=== PATIENT | female | born 2000 | race Caucasian/White ===

== ENCOUNTER 2025-03-27 13:52 | Outpatient (AMB) | payer MEDICAID, SELFPAY ==
[2025-03-27 14:12] VITALS: BP 126/83; PULSE 83; RESP 16; TEMP 36.8; O2SAT 99; BMI 27.8
--- NOTE | 2025-03-27 14:12 | AMB.OBINITIA ---
Vital Signs 03/27/25 14:12 Height 1.57 m Height Method Stated Weight 68.946 kg Weight Measurement Method Standing Scale BMI 27.8 BP 126/83 Blood Pressure Source Automatic Cuff Blood Pressure Location Left Upper Arm Position Sitting Respiration 16 Pulse 83 Pulse Source Monitor Temp 98.2 F Temp Source Oral Pulse Oximetry (%) 99 Oxygen Delivery Method Room Air Allergies/Home Meds Allergies & Medications Allergies No Known Allergies Allergy (Verified 03/27/25 14:13) Medication Reconciliation vitamins-iron fumarate 66 mg iron-folic acid 1 mg tablet tab PO 03/27/25 [History Confirmed 03/27/25] Intake Visit Data Collection New Patient or Established: New Patient (never been to [facility]) Reason for Visit:: TRANSFER INITIAL CARE Seen by Clinical Staff ONLY (RN/MA): No Edge Burnisher Uppers Required: No Do You Feel Safe at Home: Yes Authorities Contacted: N/A PCP or OBGYN visit in last 3 months: Yes Hx Now: Yes Are you currently on any form of Control: No Last menstrual period: 01/06/25 Pain Present Currently: No Pain Scale Used: Dixon-Quintanilla/Numerical Pain scale:: 0 Smoking Status Smoking Status: Never smoker Immunizations Flu Vaccine in the Last 12 Months: Yes Flu Vaccine Exclusion Criteria: Already Received Questionnaires Covid-19 Vaccine Questionnaire Has patient been vacinated for Covid-19 Have you been vacinated for Covid-19: Yes PHQ-9 PHQ-2 Over the last 2 weeks, how often have you been bothered by any of the following problems? 1. Little interest or pleasure in doing things: not at all 2. Feeling down, depressed, or hopeless: not at all Total score: 0 PHQ-9 3. Trouble falling or staying asleep, or sleeping too much: Not at all 4. Feeling tired or having little energy: Not at all 5. Poor appetite or overeating: Not at all 6. Feeling bad about yourself - or that you are a failure or have let yourself or your family down: Not at all 7. Trouble concentrating on things, such as reading the newspaper or watching television: Not at all 8. Moving or speaking so slowly that other people could have noticed? - Or the opposite - being so fidgety or restless that you have been moving around a lot more than usual: not at all 9. Thoughts that you would be better off or of hurting yourself in some way: Not at all Total score: 0 Source: Developed by Drs. Shay Escalante, Lyndsay Light, Jarad Ambrose and colleagues, with an educational fortunato from [employer]. Depression screen completed yes Social History Living Situation History Marital Status: Life Partner Lives With: Family Housing: House Tobacco History Smoking Status: Never smoker Second Hand Smoke Exposure: No Alcohol History Alcohol Intake: Never Domestic Abuse History Do You Feel Safe at Home: Yes History of Present Illness HPI Narrative 25-year-old 1 para 0 for OBI. Patient is a transfer from [facility]. She had 1 visit there. She came with minimal records. Last. January 06, 2025. Estimated due date 06/14/2025. Patient 11 weeks 4 days by LMP. Denies social habits. Denies surgery. Denies chronic illness. No bleeding today slight nausea and vomiting she reports that she did have some spotting pink a week ago OB Initial Visit OB Flowsheet OB Flowsheet Initial Weight: Not Recorded Date <del>?</del> EGA Weight BP Alb Glu CTX Pres Fundal ht FHR Mov Dilation Station Effacement Hx Notes Visit Note 03/27/25 <del>?</del> 11w 3d 68.946 kg 126/83 absent unknown 8 absent 25-year-old 1 para 0 at 11 weeks 4 days by LMP. Her LMP January 06, 2025. Estimated due date 06/14/2025. She had some spotting pink a week ago. Some nausea today but no bleeding Patient scheduled stat to [facility] for an ultrasound. No FHTs at 11 weeks and history of bleeding a week ago. Did a OB panel with hCG x 2 today. And then patient will return after hCGs and sono for rule out viability Menstrual History Menstrual reliability: definite Flow: normal Menstrual regularity: regular Monthly: Yes Age at menarche: 14 On control pills at conception: No Associated symptoms (LMP): Reports nausea, vomiting, fatigue and breast tenderness OB History : 1 Infection History & Risk Evaluation History of STDs: none Genetic Screening & History Genetic Screening/Teratology Counseling - Includes patient, baby's father, or anyone in either family with: 1. Patient's age 35 years or older as of estimated date of delivery: No 2. Thalassemia (Setswana, Mongolian, Mediterranean, or Background); MCV less than 80: No 3. Neural Tube Defect (Meningomyelocele, Spina Bifida, or Anencephaly): No 4. Congenital Heart Defect: No 5. Down Syndrome: No 6. Otf-Sachs (Ashkenazi Gnosticism, Cajun, Divehi Coamo): No 7. Inessa Disease (Ashkenazi Gnosticism): No 8. Familial Dysautonomia (Ashkenazi Gnosticism): No 9. Sickle Cell Disease or Trait (): No 10. Hemophilia or other blood disorders: No 11. Muscular Dystrophy: No 12. Cystic Fibrosis: No 13. Augusta's Chorea: No 14. Mental Retardation/Autism: No 15. Other inherited genetic or chromosomal disorder: No 16. Maternal Metabolic Disorder (EG,TYPE 1 Diabetes, PKU): No 17. Patient or baby's father had a child with defects not listed above: No 18. Recurrent loss or a stillbirth: No 19. Medications (including supplements, vitamins, herbs or otc drugs)/illicit/recreational drugs/alcohol since last menstrual period: No 20. Any other: No Infection History 1. Live with someone with TB or exposed to TB: No 2. Rash or viral illness since last menstrual period: No 3. Hepatitis B,C: No Other (see comments) Source: [employer] Review of Systems Review of Systems Systems Reviewed: All systems reviewed, normal except as documented Constitutional Constitutional: Reports fatigue Gastrointestinal Gastrointestinal: Reports nausea and Reports vomiting Endocrine Endocrine: Reports fatigue Exam General Limitations: no limitations General Appearance: alert, in no apparent distress, comfortable, cooperative, healthy appearing, well developed and well groomed Head Head exam: atraumatic, normocephalic and normal inspection ENT ENT exam: Present normal exam, normal oropharynx and mucous membranes moist Neck Neck exam: Present normal inspection, full ROM and trachea midline Chest Chest inspection: Present normal inspection and symmetric chest wall rise Resp Respiratory exam: Present normal lung sounds bilaterally Card Cardiovascular exam: Present regular rate, normal rhythm and normal heart sounds Abdominal Abdominal exam: Present soft and normal bowel sounds Psych Psychiatric exam: Present normal affect and normal mood Office Procedures O[facility] Clinic LOC & Office Proc's Nursing/Assessment Patient Status: Initial/New Patient OB Clinic Nursing Assessment: Medication Reconciliation, Update PMH in EMR and Vital Signs OB Clinic Coordination of Care: Complex Care and Chronic Disease 1-5, Consent,records obtained, informed consent, Education Simp Pt/Fam, 1 Ins Authorization, Lab and Imaging orders, Results/Orders obtained and Staff clarify orders Special Needs: Heart tones New Patient Charge New Patient Point Assignment: [id number] New Patient Point Charge: MANAGER RESPIRATORY CARE Level 4 ([id number]) Assessment & Plan Diagnosis / Problem List (1) Encounter for supervision of high risk in first trimester, antepartum: Status: Acute Plan Sono at [facility] to evaluate for viability. OB panel today with hCG x 2. Discussed SAB precautions and ER precautions rest increase fluids continue prenatals return in 2 weeks for follow-up Additional Plan Follow Up: 2 Weeks (obc)
== END 2025-03-27 14:41 | disposition home or self-care (01) ==
LOC: HODSOBC 13:52
PROVIDERS: Supervising Provider Advanced Practice Midwife; Visit Provider Advanced Practice Midwife
DX: O09.91 Supervision of high risk pregnancy, unspecified, first trimester (principal); Z3A.11 11 weeks gestation of pregnancy
CPT/HCPCS: 99204; G0463

== ENCOUNTER 2025-03-28 08:29 | Emergency (ER) | payer MEDICAID, SELFPAY ==
--- NOTE | 2025-03-28 08:44 | PD.EDVAGBL ---
ED OB Contraction Preg RMI/HPI General Chief complaint: Vaginal Bleeding Stated complaint: VAGINAL BLEEDING, 10 WEEKS Time Seen by Provider: 03/28/25 08:36 Arrival date/time: 03/28/25 08:29 RME / HPI RME / HPI Narrative: 25-year-old female who has never been before presents to the ER complaining of vaginal spotting which began today along with mild cramping, patient is aware that she is as she had a test in the office which confirmed her however she has not had an ultrasound yet, LMP was in December and she believes she is about 10 weeks . Related Data Home Medications ?Medication ?Instructions ?Recorded ?Confirmed vitamins-iron fumarate 66 tab PO 03/27/25 03/27/25 mg iron-folic acid 1 mg tablet Allergies Allergy/AdvReac Type Severity Reaction Status Date / Time No Known Allergies Allergy Verified 03/28/25 08:30 ED Exam Narrative Physical exam: Constitutional: Patient alert and oriented. Well appearing. No acute distress. Not toxic appearing. Head: Normocephalic, atraumatic. Eyes: Periorbital regions bilaterally normal to inspection. Conjunctiva clear bilaterally. Sclera anicteric bilaterally. Pupils equal, round, reactive to light bilaterally. Extraocular movements intact bilaterally. Mouth/Throat: Mucous membranes moist. No stridor or muffled voice. No trismus. Handling secretions without difficulty. Airway widely patent. Neck: Supple. Trachea midline. No JVD. No nuchal rigidity. Normal range of motion. Respiratory: Normal effort. No accessory muscle use or respiratory distress. Lungs clear to auscultation bilaterally without rhonchi, wheezes, or crackles. Cardiovascular: RRR. Normal S1/S2. No murmurs or rubs. Radial pulses intact bilaterally. Abdomen: Soft. Non-distended. Non-tender throughout. No pulsatile mass. No guarding or rebound. Negative Coats?s sign. Negative McBurney?s point tenderness. Negative Rovsing?s. Back: No midline tenderness or step-offs. No CVA tenderness to palpation bilaterally. Upper Extremities: No gross deformities. Lower Extremities: No gross deformities. No edema or calf tenderness. Neuro: Speech normal. No gross motor or sensory deficits to upper or lower extremities bilaterally. GCS 15. CN II?XII grossly intact. Skin: Warm, dry, normal color. Psych: Normal affect. Cooperative. Normal insight. : Deferred Course Course Course Narrative: At the time of reassessment prior to discharge, the patient remains alert and oriented ?3 with GCS 15. Vitals are normal, pain is controlled, and the patient is tolerating oral intake without nausea or vomiting. The patient is agreeable to discharge and verbalizes understanding of the diagnosis, studies, treatment plan, medications (including side effects/precautions), and strict ER return precautions as discussed in the ED. All concerns were addressed, and the patient is comfortable with the plan. Patient remains hemodynamically stable and serial abdominal exams benign without peritonitis Quality Measures none Orders Category Date Time Status NPO NOW Care 03/28/25 08:48 Active Diet NPO (NOW) Diet 03/28/25 08:48 Active US OB <= 14 weeks fetus Stat Exams 03/28/25 08:48 Completed US OB transvaginal Stat Exams 03/28/25 08:48 Completed ABO/RH Type Stat Lab 03/28/25 09:49 Completed Beta HCG,Quantitative Stat Lab 03/28/25 09:49 Completed CBC Stat Lab 03/28/25 09:49 Completed CMP [Comprehensive Metabolic Panel] Stat Lab 03/28/25 09:49 Completed Lipase Stat Lab 03/28/25 09:49 Completed UA, C/S IF [Urinalysis, C/S if Indicated] Stat Lab 03/28/25 09:03 Completed Acetaminophen Tab [Tylenol Tab] Med 03/28/25 08:48 Discontinued 650 mg PO X1 ONE Vital Signs Vital signs: Vital Signs Temperature 97.8 F 03/28/25 08:46 Pulse Rate 98 03/28/25 08:46 Respiratory Rate 19 03/28/25 08:46 Blood Pressure 158/83 H 03/28/25 08:46 Pulse Oximetry (%) 99 03/28/25 08:46 Oxygen Delivery Method Room Air 03/28/25 08:46 Vaginal Bleeding MDM Narrative MDM Narrative: MDM: This patient is in the first trimester of her and after a careful history, physical exam, and evaluation, is found to be at risk of a miscarriage. The likelihood of an ectopic is extremely low. There are no signs of an infection at this time. I am concerned for mild anemia with Hb 11.8 as well as a likely spontaneous or missed miscarriage otherwise no severe metabolic or electrolyte abn. Urine is contaminated. Pt is O positive no indication for rhogam. Ultrasound with no FHT and fetus is measuring 8 weeks despite a gestational sac of about 10 weeks. The patient is instructed to follow-up with an Garbage Collector within 48-72 hours for re-evaluation. The patient is warned to return to the ED if she develops significant bleeding, dizziness, syncope, or severe pain. Patient data External records reviewed:: [facility] previous records Clinical information provided by:: patient Social determinants that could affect healthcare access:: none Patient has the following chronic illnesses:: As noted How is presenting disease/condition affected by chronic disease/condition?: no chronic disease Evaluation data The following diagnostics were reviewed and interpreted by me:: lab results and radiology exam(s) Lab and/or radiology exams considered but not ordered:: Additional Labs and radiology considered, but not ordered as they were not clinically indicated at this time. Interpretation Summary: Lab work notable for hemoglobin minimally low at 11.8, hematocrit minimally low at 34.6, neutrophil percentage minimally elevated 81% however white blood cell count is normal at 9.6 neutrophil number minimally elevated 7.8 immature granulocyte number minimally elevated 0.03 remainder of CBC, CMP, lipase within normal limits, hCG is 3055 there is blood noted in the urine with 9 RBCs and 6 WBCs and 4 squamous cells with rare bacteria cannot exclude asymptomatic bacteruria to her urea in Type and screen notes O+ no indication for RhoGAM Medications / Prescriptions Medications or Prescriptions considered but not ordered:: I ordered medications based on the patient?s clinical needs and assessment, as documented in the chart. For medications not prescribed, they were not indicated for the patient's current condition, and I determined they were unnecessary at this time to avoid potential risks or complications. Medication administrations:: Medication Administration History Discontinued Medications Acetaminophen (Acetaminophen 325 Mg Tablet) 650 mg PO X1 ONE Stop: 03/28/25 08:49 Last Admin: 03/28/25 09:45 Dose: Not Given Documented By: ÓSCAR Non-Admin Reason: Patient Refused As noted Consultations Consultation(s) initiated? (list below): Yes Consultation #1 (Physician, Specialty, Details): Dr. Massey, OPERATIONS INTERN, after review of images she states that this is consistent with a spontaneous and she can follow-up with her clinic on Tuesday. Time: 13:31 Diagnosis Vaginal Bleeding Differential Diagnosis: missed , threatened and incomplete Most likely diagnosis given after review of the tests above:: Missed AB Admission Indicated Admission indicated?: not indicated Admission Request Was there a request for admission?: No Disposition Plan Disposition Plan: Discharge Discharge Attestation Discharge Attestation: The patient and all family members were given an opportunity to ask questions and understood the discharge instructions. Discharge instructions specifically effects, indications for sooner follow up or return to the emergency department, and the expected course of current diagnosis. Patient condition: Stable Discharge Plan Plan Patient Disposition: HOME (Self Care) Patient condition on transfer: Stable Prescriptions/Referrals Prescriptions/Med Rec: No Action vit-iron fum-folic ac 66 mg iron- 1 mg tablet PO Referrals: [facility] (OB Clinic)Arianna MD [Physician, OPERATIONS INTERN] - 04/01/25 Clinical Impression: Missed Antonio Hameed MD [Primary Care Provider, Family Practice] - In 1 week Problem List Clinical Impression: Missed Patient/Caregiver Discharge Instructions Education Materials: ED Missed Miscarriage Additional Instructions: Follow up with your OPERATIONS INTERN doctor within 72 hours. Return to the Emergency Room immediately for any new, worsening, continuing symptoms or any concerns at all. Return to the Emergency Room within 72 hours if you are unable to follow up with your OPERATIONS INTERN doctor within 48 hours. Print Language: Italian Stand Alone Forms: Vanesa Award Info., Patient Portal Info Letter ELIE/ZACHERY Supervising Physician ELIE/ZACHERY Supervising Physician: Dr. Morin
[2025-03-28 08:46] VITALS: BP 158/83; PULSE 98; RESP 19; TEMP 36.6; O2SAT 99
[2025-03-28 08:47] VITALS: BMI 32.8
--- NOTE | 2025-03-28 08:48 | XR_ITS ---
Examination: OB Transvaginal ultrasound of the pelvis, complete Technique: Transvaginal sonographic images pelvis performed using cosme scale imaging Exam date and time: 03/28/2025 at 9:25 a.m CLINICAL INDICATION: No heart rate able to be identified on transabdominal obstetrical ultrasound exam FINDINGS: There is excellent visualization of the uterus, gestational sac and fetus. The size of the gestational sac is consistent with gestational age of 9 weeks 4 days. Metter-rump length of the fetus is consistent with 8 weeks 5 days chorioamniotic separation is identified, this is a normal finding. There is no motion identified, there is no cardiac activity identified There was good visualization of both right and left ovaries, they are both normal size and configuration, and there are small normal follicular cysts seen in both ovaries. No yolk sac is visible. IMPRESSION: 1. The findings noted and discussed above indicate the presence of definite intrauterine demise. 2. No other abnormalities are seen..
--- NOTE | 2025-03-28 08:48 | XR_ITS ---
Examination: Complete OB ultrasound, less than 14 weeks, transabdominal Date and time of exam: 03/28/2025 at 9:00 a.m. Technique: Obstetrical ultrasound images less than 14 weeks performed via transabdominal imaging Findings: A normal shaped single intrauterine gestation is present in the uterus. The size of the gestational sac is consistent with a gestational age of 10 weeks 0 days there is a small fetus seen within the gestational sac. No yolk sac is visible. No cardiac activity was seen. The crown-rump length of the fetus measures 1.8 cm consistent with an 8-week 2-day gestational age. Both right and left ovaries have a normal size and normal ultrasonic appearance. There is normal color flow vascularity extending to both ovaries Impression 1. There is a single intrauterine fetus identified, crown-rump length consistent with 8 weeks 2 days gestation. However the size of the gestational sac is consistent with a 10-week IUP. No yolk sac is visible either. 2. No heart tones can be seen at all despite prolonged effort to visualize these. 3. These findings are quite worrisome for intrauterine demise.
[2025-03-28 09:09] LABS: Collection Type, Urine Clean Catch
[2025-03-28 09:13] LABS: Bacteria,Urine Rare; Bilirubin,Urine Negative (Negative); Blood,Urine 2+ (Negative); Clarity,Urine Clear (Clear/Hazy); Color,Urine Lt-Yellow (Lt Yel-Yel); Culture Indicated,Urine Not Indicated; Glucose, Urine Negative (Negative); Ketones,Urine Negative (Negative); Leukocyte Esterase,Urine Positive (Negative); Nitrite,Urine Negative (Negative); PH,Urine 6.5 (5.0-7.0); Protein,Urine Negative (Neg - Trace); RBC,Urine 9 /hpf (0-3); Specific Gravity,Urine 1.007 (1.001-1.035); Squamous Epithelial Cell,Urine 4 /hpf (0-5); Urobilinogen,Urine Negative mg/dL (0.0-1.0); WBC,Urine 6 /hpf (0-5)
[2025-03-28 10:13] LABS: Basophils # (Auto) 0.0 Thou/mm3 (0.0-0.2); Basophils % (Auto) 0 % (0-2.5); Eosinophils # (Auto) 0.1 Thou/mm3 (0.0-0.5); Eosinophils % (Auto) 2 % (0-10); Hematocrit 34.6 % (36.0-46.0); Hemoglobin 11.8 g/dL (12.0-16.0); Immature Granulocytes Auto 0.03 Thou/mm3 (0.00-0.00); Lymphocytes # (Auto) 1.2 Thou/mm3 (1.0-4.8); Lymphocytes % (Auto) 13 % (10-50); Mean Corpuscular HGB Conc 34.1 g/dl (31.0-37.0); Mean Corpuscular Hemoglobin 27.4 pg (25.0-35.0); Mean Corpuscular Volume 80 fL (80-100); Monocytes # (Auto) 0.5 Thou/mm3 (0.0-0.8); Monocytes % (Auto) 5 % (0-12); Neutrophils # (Auto) 7.8 Thou/mm3 (1.8-7.7); Neutrophils % (Auto) 81 % (37-80); Nucleated Red Blood Cell # 0.00 Thou/mm3 (0.00-0.00); Nucleated Red Blood Cell % 0 /100 WBC (0); Platelet Count 158 Thou/mm3 (140-440); RDW Standard Deviation 38.3 fL (36.4-46.3); Red Blood Count 4.31 Miln/mm3 (4.00-5.20); White Blood Count 9.6 Thou/mm3 (3.6-11.0)
[2025-03-28 10:32] LABS: Alanine Aminotransferase 17 U/L (10-49); Albumin, Serum 4.9 gm/dL (3.5-5.0); Albumin/Globulin Ratio 1.9 (1.2-2.2); Alkaline Phosphatase 73 U/L (46-116); Anion Gap 12 (7-16); Aspartate Amino Transferase 18 U/L (0-34); BUN/Creatinine Ratio 8 Ratio (12-20); Bilirubin,Total 0.3 mg/dL (0.3-1.2); Blood Urea Nitrogen 5 mg/dL (9-23); Calcium 9.8 mg/dL (8.3-10.6); Calcium (Corrected) 9.8 mg/dL (8.5-10.1); Carbon Dioxide 25.7 mMol/L (20.0-31.0); Chloride 104 mMol/L (98-107); Creatinine (Component) 0.6 mg/dL (0.6-1.3); Estimated Creatinine Clearance 149.6 mL/min (>60); Globulin 2.6 gm/dL (2.3-3.5); Glucose 103 mg/dL (74-106); Lipase 25 U/L (12-53); Osmolality,Calculated 280 (275-295); Potassium 3.8 mMol/L (3.4-5.1); Sodium 142 mMol/L (136-145); Total Protein 7.5 gm/dL (5.7-8.2); eGFR > 60 See Note
[2025-03-28 10:38] LABS: Beta HCG,Quantitative 3055 mIU/mL (<5.0)
== END 2025-03-28 15:19 | disposition home or self-care (01) ==
PROVIDERS: Emergency Provider Physician Assistant; PCP Family Medicine
DX: O02.1 Missed abortion (principal); Z3A.10 10 weeks gestation of pregnancy
CPT/HCPCS: 36415; 76801; 76817; 80053; 81001; 83690; 84702; 85025; 86900; 86901; 99283

== ENCOUNTER 2025-03-28 15:25 | Outpatient (AMB) | payer MEDICAID, SELFPAY ==
[2025-03-28 15:45] VITALS: BP 131/83; PULSE 105; RESP 18; TEMP 36.8; O2SAT 98; BMI 26.8
--- NOTE | 2025-03-28 15:45 | AMB.GYNCLNOT ---
Vital Signs 03/28/25 15:45 Height 1.6 m Height Method Stated Weight 68.606 kg Weight Measurement Method Standing Scale BMI 26.8 BP 131/83 H Blood Pressure Source Automatic Cuff Blood Pressure Location Left Upper Arm Position Sitting Respiration 18 Pulse 105 H Pulse Source Monitor Temp 98.2 F Temp Source Oral Pulse Oximetry (%) 98 Oxygen Delivery Method Room Air Allergies/Home Meds Allergies & Medications Allergies No Known Allergies Allergy (Verified 03/28/25 15:46) Medication Reconciliation vitamins-iron fumarate 66 mg iron-folic acid 1 mg tablet tab PO 03/27/25 [History Confirmed 03/28/25] Intake Visit Data Collection New Patient or Established: Established Patient (seen at [facility] within 3 years) Reason for Visit:: ER Seen by Clinical Staff ONLY (RN/MA): No Service Delivery Analyst Required: Yes Service Delivery Analyst's name/title: STEPHANIE FLORES MA Do You Feel Safe at Home: Yes Authorities Contacted: N/A PCP or OBGYN visit in last 3 months: Yes Date of Last PCP or OBGYN visit: 03/28/25 Hx Now: Yes Are you currently on any form of Control: No Pain Present Currently: No Pain Scale Used: Dixon-Quintanilla/Numerical Pain scale:: 0 Smoking Status Smoking Status: Never smoker Immunizations Flu Vaccine in the Last 12 Months: No Flu Vaccine Exclusion Criteria: No Exclusion Criteria 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 1. Little interest or pleasure in doing things: not at all 2. Feeling down, depressed, or hopeless: not at all Total score: 0 PHQ-9 3. Trouble falling or staying asleep, or sleeping too much: Not at all 4. Feeling tired or having little energy: Not at all 5. Poor appetite or overeating: Not at all 6. Feeling bad about yourself - or that you are a failure or have let yourself or your family down: Not at all 7. Trouble concentrating on things, such as reading the newspaper or watching television: Not at all 8. Moving or speaking so slowly that other people could have noticed? - Or the opposite - being so fidgety or restless that you have been moving around a lot more than usual: not at all 9. Thoughts that you would be better off or of hurting yourself in some way: Not at all Total score: 0 If you checked off any problems, how difficult have these problems made it for you to do your work, take care of things at home, or get along with other people?: not difficult at all Source: Developed by Drs. Shay Escalante, Lyndsay Light, Jarad Ambrose and colleagues, with an educational fortunato from [employer]. Depression screen completed yes Social History Living Situation History Lives With: Family Housing: House Tobacco History Smoking Status: Never smoker Second Hand Smoke Exposure: No Alcohol History Alcohol Intake: Never Domestic Abuse History Do You Feel Safe at Home: Yes History of Present Illness HPI Narrative Polina Dennis presents to the emergency room today with concerns related to her . She reports experiencing a small amount of bleeding. The patient speaks limited Albanian and required some assistance with communication during the visit. She was experiencing symptoms that prompted her to seek emergency care today. Diagnostic Test Results and Labs: - Transvaginal ultrasound (03-28-2025): Gestational sac size consistent with 9 weeks and 4 days gestation, crown rump length consistent with 8 weeks and 5 days gestation, chorioamniotic separation identified (normal finding per radiologist), no motion identified, no cardiac activity identified, findings consistent with intrauterine demise - Serum HCG quantitative (03-28-2025): 3055 Exam General General Appearance: alert, in no apparent distress and healthy appearing Head Head exam: atraumatic Neck Neck exam: Present normal inspection and trachea midline Chest Chest inspection: Present normal inspection and symmetric chest wall rise External exam: Present normal external exam; Absent tenderness Neuro Neurological exam: Present oriented X3 Psych Psychiatric exam: Present normal affect and normal mood Office Procedures OBC Clinic LOC & Office Proc's Nursing/Assessment Patient Status: Established Patient OB Clinic Nursing Assessment: Medication Reconciliation, Update PMH in EMR and Vital Signs OB Clinic Coordination of Care: Consent,records obtained, informed consent, Education Simp Pt/Fam, Lab and Imaging orders, Results/Orders obtained and Staff clarify orders Established Patient Charge Established Patient Point Assignment: 80 Established Patient Point Charge: EP Level 3 (80-115) Assessment & Plan Diagnosis / Problem List (1) Missed : Status: Acute (2) Encounter for supervision of high risk in first trimester, antepartum: Status: Acute Plan Intrauterine demise Assessment: Transvaginal ultrasound from the emergency room demonstrates intrauterine demise with gestational sac size consistent with 9 weeks 4 days and crown-rump length consistent with 8 weeks 5 days. No cardiac activity or motion identified. Chorioamniotic separation noted, which is a normal finding per radiology. Serum quantitative HCG level is 3055. Patient reports minimal bleeding, which represents the beginning of miscarriage process. demise occurred at least one week ago when growth stopped at 8 weeks gestation. Plan: - Extensively counseled on three treatment options: expectant management, medical management, or surgical management (D&C) - Discussed outcomes, risks, benefits, and alternatives of each approach - Patient will go home to discuss options with family and call back with decision - Counseled on emergency precautions: return to ER if bleeding becomes heavier or if experiencing lightheadedness or dizziness, with instructions to ask for on-call OB doctor - Backup appointment scheduled in 2-3 days for follow-up - Provided copy of ultrasound per patient request
== END 2025-03-28 16:16 | disposition home or self-care (01) ==
LOC: HODSOBC 15:25
PROVIDERS: PCP Family Medicine; Referring Provider Family Medicine; Supervising Provider Obstetrics & Gynecology; Visit Provider Obstetrics & Gynecology
DX: O02.1 Missed abortion (principal)
CPT/HCPCS: 99213; G0463

== ENCOUNTER 2025-03-31 13:43 | Emergency (ER) | payer MEDICAID, SELFPAY ==
[2025-03-31 13:44] VITALS: BMI 26.5
[2025-03-31 13:53] VITALS: BP 121/79; PULSE 70; RESP 16; TEMP 37.4; O2SAT 98
--- NOTE | 2025-03-31 14:00 | EDNOTE_ITS ---
<Statement entered by Michaela Salgado MD - 04/02/25 17:48> As co-signing physician, I was present and available for consult prn. I concur with the plan and care as documented by the midlevel provider. ED Abdominal Pain RME/HPI General Chief Complaint: Vaginal Bleeding Stated complaint: VAG. BLEEDING X1 DAY, LOWER ABD CRAMPING X1 DAY Time seen by provider: 03/31/25 13:59 Arrival date/time: 03/31/25 13:43 RME / HPI RME / HPI narrative: Healthy 25-year-old female presents to the ER last menstrual period in December with a positive test in January at a clinic visit and then she subsequently was seen here 3 days ago when she started having some vaginal spotting and cramping was diagnosed with a missed AB went to the clinic and was presented her options and she went home to discuss them with her family however now she returns to the ER because she has gone through 3 pads since 12 PM and has had increased cramping. Patient states that she would like to have some medication to push her along at this point. Related Data Home Medications ?Medication ?Instructions ?Recorded ?Confirmed vitamins-iron fumarate 66 tab PO 03/27/2503/12 mg iron-folic acid 1 mg tablet Previous Rx's ?Medication ?Instructions ?Recorded hydrocodone 5 mg-acetaminophen 325 1 tab PO Q6H PRN pa in #2 tabs 03/31/25 mg tablet ibuprofen 800 mg tablet 800 mg PO Q8H PRN pain #20 t abs 03/31/25 ondansetron 4 mg disintegrating 4 mg PO Q6H PRN nausea and 03/31/25 tablet vomiting #7 tabs Allergies Allergy/AdvReac Type Severity Reaction Status Date / Time No Known Allergies Allergy Verified 03/31/25 13:46 Past Medical History Social History SMOKING STATUS: Never smoker SECOND HAND EXPOSURE: No Course Quality Measures none Orders Category Date Time Status NPO NOW Care 03/31/25 14:30 Active Diet NPO (NOW) Diet 03/31/25 14:30 Active US OB <= 14 weeks fetus Stat Exams 03/31/25 14:30 Taken US OB transvaginal Stat Exams 03/31/25 14:30 Taken ABO/RH Type Stat Lab 03/31/25 14:47 Completed Beta HCG,Quantitative Stat Lab 03/31/25 14:47 Completed CBC Stat Lab 03/31/25 14:47 Completed CMP [Comprehensive Metabolic Panel] Stat Lab 03/31/25 14:47 Completed Lipase Stat Lab 03/31/25 14:47 Completed UA, C/S IF [Urinalysis, C/S if Indicated] Stat Lab 03/31/25 16:47 Completed Acetaminophen Tab [Tylenol Tab] Med 03/31/25 14:30 Discontinued 650 mg PO X1 ONE Reevaluation(s) Reevaluation #1: Dr. Gonzales, DIGITAL PRODUCER, she is agreeable to provide patient with Cytotec for medical expulsion therapy and advised need to educate patient on administration as well as strict ER return precautions, Dr. Gonzales will provide the Rx for this medication as well as pain and nausea management Time: 17:28 Vital Signs Vital signs: Vital Signs Temperature 99.3 F 03/31/25 13:53 Pulse Rate 70 03/31/25 13:53 Respiratory Rate 16 03/31/25 13:53 Blood Pressure 121/79 03/31/25 13:53 Pulse Oximetry (%) 98 03/31/25 13:53 Oxygen Delivery Method Room Air 03/31/25 13:53 Abdominal Pain MDM MDM Narrative MDM Narrative:: MDM 25-year-old female presents to the ER 3 days after being diagnosed with a spontaneous missed AB in the process of an incomplete miscarriage at this time. Patient's hemoglobin has been stable despite mild anemia at 11 8. Beta-hCG has decreased from 3055-11 59. Ultrasound is notable for retained products of conception. Patient is requesting medical expulsion therapy as she was previously extensively counseled in the office about her options and this is what she chose after thinking about it at home. And after my consultation with Dr. Gonzales this will be provided patient was educated about the medication and what to expect and advised strict ER return precautions. Patient to follow-up with her DIGITAL PRODUCER within 2 to 3 days, strict ER return precautions advised. At the time of reassessment prior to discharge, the patient remains alert and oriented ?3 with GCS 15. Vitals are normal, pain is controlled, and the patient is tolerating oral intake without nausea or vomiting. The patient is agreeable to discharge and verbalizes understanding of the diagnosis, studies, treatment plan, medications (including side effects/precautions), and strict ER return precautions as discussed in the ED. All concerns were addressed, and the patient is comfortable with the plan. Patient remains hemodynamically stable at time of discharge with serial abdominal exams being benign without peritonitis. Patient data External records reviewed:: [facility] previous records Clinical information provided by:: patient Social determinants that could affect healthcare access:: none Patient has the following chronic illnesses:: As noted How is presenting disease/condition affected by chronic disease/condition?: no chronic disease Evaluation data The following diagnostics were reviewed and interpreted by me:: lab results and radiology exam(s) Lab and/or radiology exams considered but not ordered:: Additional Labs and radiology considered, but not ordered as they were not clinically indicated at this time. Interpretation Summary: As noted Medications / Prescriptions Medications or Prescriptions considered but not ordered:: I ordered medications based on the patient?s clinical needs and assessment, as documented in the chart. For medications not prescribed, they were not indicated for the patient's current condition, and I determined they were unnecessary at this time to avoid potential risks or complications. Medication administrations:: Medication Administration History Discontinued Medications Acetaminophen (Acetaminophen 325 Mg Tablet) 650 mg PO X1 ONE Stop: 03/31/25 14:31 Last Admin: 03/31/25 16:19 Dose: 650 mg Documented By: As noted Consultations Consultation(s) initiated? (list below): Yes Consultation #1 (Physician, Specialty, Details): Dr. Gonzales, OBGYN, she was agreeable to provide patient with medical expulsion therapy as she was previously extensively counseled in the office her options and this is her choice, she will send medication into her pharmacy and advised that I educate patient about her use of the medication and what to expect and strict ER return precautions advised as well as follow-up with her DIGITAL PRODUCER Time: 17:36 Diagnosis Differential diagnosis abdominal pain: abdominal pain, constipation and endomet riosis Most likely diagnosis given after review of the tests above:: Incomplete Admission Indicated Admission indicated?: not indicated Explain why admission is indicated or not indicated:: Escalation of care including admission/observation considered but I decided to discharge because based on the overall clinical presentation, and after consideration of the patient's course in the emergency department and plan for outpatient management, I believe that neither further observation nor inpatient care is required at this time. Admission Request Was there a request for admission?: No Disposition Plan Disposition Plan: Discharge Discharge Attestation Discharge Attestation: The patient and all family members were given an opportunity to ask questions and understood the discharge instructions. Discharge instructions specifically effects, indications for sooner follow up or return to the emergency department, and the expected course of current diagnosis. Patient condition: Stable Discharge Plan Plan Patient Disposition: HOME (Self Care) Patient condition on transfer: Stable Prescriptions/Referrals Prescriptions/Med Rec: New ibuprofen 800 mg tablet 800 mg PO Q8H PRN (Reason: pain) Qty: 20 0RF hydrocodone-acetaminophen 5-325 mg tablet 1 tab PO Q6H MDD 2 tablets PRN (Reason: pain) Qty: 2 0RF ondansetron 4 mg tablet,disintegrating 4 mg PO Q6H PRN (Reason: nausea and vomiting) Qty: 7 0RF No Action vit-iron fum-folic ac 66 mg iron- 1 mg tablet PO Referrals: Kain Garcia MD [Physician, DIGITAL PRODUCER] - In 1 week Torie Gonzales MD [Physician, DIGITAL PRODUCER] - In 1 week Problem List Clinical Impression: , missed, Incomplete Patient/Caregiver Discharge Instructions Discharge Activity: activity as tolerated Diet Instructions: regular Education Materials: ED Miscarriage, Incomplete, ED Missed Miscarriage Additional Instructions: You are being prescribed Cytotec [address] 4 tablets intravaginally with your finger as far as it can go up into the vagina. Please allow your schedule to provide free down for a full 24 hours after administration as your bleeding could begin as soon as an hour after administration but as late as 24 hours and you should expect bleeding and pain initially which should resolve shortly after and begin to minimize and improve. If you do not start bleeding within 24 hours please readminister 4 more tablets intravaginally for a total of 800 mcg. And if you unfortunately do not bleed again for the next 24 hours you have been provided with even 1 more refill just in case. These will be at your pharmacy. Follow up with your primary medical doctor and your DIGITAL PRODUCER doctor within 48 hours. Return to the Emergency Room immediately for any new, worsening, continuing symptoms or any concerns at all. Return to the Emergency Room within 48 hours if you are unable to follow up with your primary medical doctor and your DIGITAL PRODUCER doctor within 48 hours. Print Language: Romanian Stand Alone Forms: [employer]anes[employer] Award Info., Patient Portal Info Letter PA/SUBSTATION INSPECTOR Supervising Physician PA/SUBSTATION INSPECTOR Supervising Physician: Dr. Salgado
--- NOTE | 2025-03-31 14:30 | XR_ITS ---
Examination: Complete OB ultrasound, less than 14 weeks, transabdominal Date and time of exam: March 31, 2025, 1534 hours INDICATION: Pelvic pain and bleeding beginning 3 days ago Technique: Obstetrical ultrasound images less than 14 weeks performed via transabdominal imaging Findings: Uterus 8.8 cm, no intrauterine gestation or uterine mass Right ovary 3.4 cm arterial flow Left ovary 2.4 cm arterial flow Endometrial stripe 1.4 cm IMPRESSION: No intrauterine gestation or retained products of conception currently, but the appearance is consistent with completed spontaneous
--- NOTE | 2025-03-31 14:30 | XR_ITS ---
Examination: OB Transvaginal ultrasound of the pelvis, complete Technique: Transvaginal sonographic images pelvis performed using cosme scale imaging Exam date and time: March 31, 2025, 1544 hours INDICATION: Pelvic pain and bleeding beginning 3 days ago, OB by sonogram March 28, 2025 pole or but no motion, no cardiac activity FINDINGS: Uterus 9.3 cm Endometrial stripe 0.6 cm Possible pole and intrauterine gestational sac in the lower uterine segment cervical region corresponding to 6 weeks 4 days gestational age No cardiac motion Right ovary obscured by bowel gas Left ovary 2.7 cm arterial flow IMPRESSION: Findings most consistent with spontaneous in progress, recommend continued short-term follow-up transvaginal pelvic sonography.
[2025-03-31 15:00] LABS: Basophils # (Auto) 0.0 Thou/mm3 (0.0-0.2); Basophils % (Auto) 0 % (0-2.5); Eosinophils # (Auto) 0.1 Thou/mm3 (0.0-0.5); Eosinophils % (Auto) 1 % (0-10); Hematocrit 35.3 % (36.0-46.0); Hemoglobin 11.7 g/dL (12.0-16.0); Immature Granulocytes Auto 0.05 Thou/mm3 (0.00-0.00); Lymphocytes # (Auto) 1.4 Thou/mm3 (1.0-4.8); Lymphocytes % (Auto) 13 % (10-50); Mean Corpuscular HGB Conc 33.1 g/dl (31.0-37.0); Mean Corpuscular Hemoglobin 26.5 pg (25.0-35.0); Mean Corpuscular Volume 80 fL (80-100); Monocytes # (Auto) 0.3 Thou/mm3 (0.0-0.8); Monocytes % (Auto) 3 % (0-12); Neutrophils # (Auto) 8.9 Thou/mm3 (1.8-7.7); Neutrophils % (Auto) 83 % (37-80); Nucleated Red Blood Cell # 0.00 Thou/mm3 (0.00-0.00); Nucleated Red Blood Cell % 0 /100 WBC (0); Platelet Count 193 Thou/mm3 (140-440); RDW Standard Deviation 36.9 fL (36.4-46.3); Red Blood Count 4.42 Miln/mm3 (4.00-5.20); White Blood Count 10.7 Thou/mm3 (3.6-11.0)
[2025-03-31 15:19] LABS: Alanine Aminotransferase 16 U/L (10-49); Albumin, Serum 5.2 gm/dL (3.5-5.0); Albumin/Globulin Ratio 1.9 (1.2-2.2); Alkaline Phosphatase 79 U/L (46-116); Anion Gap 11 (7-16); Aspartate Amino Transferase 18 U/L (0-34); BUN/Creatinine Ratio 13 Ratio (12-20); Bilirubin,Total 0.4 mg/dL (0.3-1.2); Blood Urea Nitrogen 10 mg/dL (9-23); Calcium 9.9 mg/dL (8.3-10.6); Calcium (Corrected) 9.9 mg/dL (8.5-10.1); Carbon Dioxide 24.7 mMol/L (20.0-31.0); Chloride 103 mMol/L (98-107); Creatinine (Component) 0.8 mg/dL (0.6-1.3); Estimated Creatinine Clearance 101.3 mL/min (>60); Globulin 2.7 gm/dL (2.3-3.5); Glucose 131 mg/dL (74-106); Lipase 23 U/L (12-53); Osmolality,Calculated 278 (275-295); Potassium 3.7 mMol/L (3.4-5.1); Sodium 139 mMol/L (136-145); Total Protein 7.9 gm/dL (5.7-8.2); eGFR > 60 See Note
[2025-03-31 15:28] LABS: Beta HCG,Quantitative 1159 mIU/mL (<5.0)
--- NOTE | 2025-03-31 16:05 | PC.NURSE ---
PATIENT WAS CALLED AND NO ANSWER IN LOBBY OR OUTSIDE OF ED LOBBY AT X2 1521 AND AT 1530. PRESUMED PATIENT TO HAVE LEFT THE FACILITY.
[2025-03-31] MEDS: ACETAMINOPHEN 325 MG TABLET 650 MG PO (16:19)
[2025-03-31 16:28] VITALS: PULSE 92; O2SAT 100
[2025-03-31 16:52] LABS: Collection Type, Urine Clean Catch
[2025-03-31 17:11] LABS: Bilirubin,Urine Negative (Negative); Blood,Urine 3+ (Negative); Culture Indicated,Urine Not Indicated; Glucose, Urine Negative (Negative); Ketones,Urine Trace (Negative); Leukocyte Esterase,Urine Positive (Negative); Nitrite,Urine Negative (Negative); PH,Urine 6.5 (5.0-7.0); Protein,Urine 1+ (Neg - Trace); RBC,Urine 6436 /hpf (0-3); Specific Gravity,Urine 1.024 (1.001-1.035); Squamous Epithelial Cell,Urine 3 /hpf (0-5); Urobilinogen,Urine Negative mg/dL (0.0-1.0); WBC,Urine 7 /hpf (0-5)
[2025-03-31 17:16] LABS: Clarity,Urine Turbid (Clear/Hazy); Color,Urine Red (Lt Yel-Yel)
--- NOTE | 2025-03-31 17:33 | ESCONSULT_ITS ---
COMMERCIAL ACCOUNT EXECUTIVE HPI Data of Consult Primary Care Provider: Antonio Hameed MD Consult Narrative cc:: cc: Meds Home Medications and Allergies Home Medications ?Medication ?Instructions ?Recorded ?Confirmed ?Type vitamins-iron fumarate 66 tab PO 03/27/2503/12 History mg iron-folic acid 1 mg tablet Allergies Allergy/AdvReac Type Severity Reaction Status Date / Time No Known Allergies Allergy Verified 03/31/25 13:46 Exam - COMMERCIAL ACCOUNT EXECUTIVE Vital Signs Temp Pulse Resp BP Pulse Ox O2 Del Method 99.3 F 92 16 121/79 100 Room Air 03/31/25 13:53 03/31/25 16:28 03/31/25 13:53 03/31/25 13:53 03/31/25 16:28 03/31/25 16:28 COMMERCIAL ACCOUNT EXECUTIVE - Results Labs 03/31/25 14:47 03/31/25 14:47 Labs: Short CBC 03/31/25 Range/Units 14:47 WBC 10.7 (3.6-11.0) Thou/mm3 Hgb 11.7 L (12.0-16.0) g/dL Hct 35.3 L (36.0-46.0) % Plt Count 193 D (140-440) Thou/mm3 BMP 03/31/25 14:47 Sodium 139 Potassium 3.7 Chloride 103 Carbon Dioxide 24.7 BUN 10 Creatinine 0.8 Glucose 131 H Calcium 9.9 Liver Function 03/31/25 Range/Units 14:47 Total Bilirubin 0.4 (0.3-1.2) mg/dL AST 18 (0-34) U/L ALT 16 (10-49) U/L Alkaline Phosphatase 79 (46-116) U/L Albumin 5.2 H (3.5-5.0) gm/dL Urine 03/31/25 Range/Units 16:47 Urine Color Red A (Lt Yel-Yel) Urine Clarity Turbid A (Clear/Hazy) Urine pH 6.5 (5.0-7.0) Ur Specific [place] 1.024 (1.001-1.035) Urine Protein 1+ A (Neg - Trace) Urine Glucose (UA) Negative (Negative) Assessment and Plan Assessment and plan (1) , missed: Status: Acute Assessment and plan: I spoke with KRISTIE Dixon over the phone regarding Polina's care. Polina is a 25yo female diagnosed on 03/28 with missed (Transvaginal ultrasound (03-28-2025): Gestational sac size consistent with 9 weeks and 4 days gestation, crown rump length consistent with 8 weeks and 5 days gestation, chorioamniotic separation identified (normal finding per radiologist), no motion identified, no cardiac activity identified, findings consistent with intrauterine demise.) On that date she was extensively counseled (per Dr Garcia's note) on management options to include expectant management vs medical management vs surgical. She wanted time to consider and presented to ER today ahead of follow up appt with period-like bleeding. Hgb is stable (11.7 from 11.8) and vitals are wnl. Ultrasound shows collapsed GS with FP having absent FCA in lower uterine segment based on my review of images (formal read pending). Patient states a desire for medical management to assist completion of miscarriage. Rx cytotec 800mcg PV to pharmacy with 2 extra doses to take each 24 hours after prior dose if no passage of tissue occurs. Also Rx motrin and 2 norco tabs prn pain as well as zofran for nausea. Patient to be counseled on return precautions and follow up with Dr. Garcia in 1 week. Torie Gonzales MD
== END 2025-03-31 18:02 | disposition home or self-care (01) ==
PROVIDERS: Physician Assistant; Emergency Provider Emergency Medicine; PCP Family Medicine
DX: N93.9 Abnormal uterine and vaginal bleeding, unspecified (principal); O03.4 Incomplete spontaneous abortion without complication
CPT/HCPCS: 36415; 76801; 76817; 80053; 81001; 83690; 84702; 85025; 86900; 86901; 99283; A9270

== ENCOUNTER 2025-04-01 10:15 | Outpatient (AMB) | payer MEDICAID, SELFPAY ==
[2025-04-01 11:02] VITALS: BP 125/83; PULSE 80; RESP 18; TEMP 36.2; O2SAT 98; BMI 26.2
--- NOTE | 2025-04-01 11:02 | AMB.GYNCLNOT ---
Vital Signs 04/01/25 11:02 Height 1.6 m Height Method Stated Weight 67.302 kg Weight Measurement Method Standing Scale BMI 26.2 BP 125/83 Blood Pressure Source Automatic Cuff Blood Pressure Location Left Upper Arm Position Sitting Respiration 18 Pulse 80 Pulse Source Monitor Temp 97.2 F Temp Source Oral Pulse Oximetry (%) 98 Oxygen Delivery Method Room Air Allergies/Home Meds Allergies & Medications Allergies No Known Allergies Allergy (Verified 04/01/25 11:03) Medication Reconciliation vitamins-iron fumarate 66 mg iron-folic acid 1 mg tablet tab PO 03/27/25 [History Confirmed 04/01/25] hydrocodone 5 mg-acetaminophen 325 mg tablet 1 tab PO Q6H PRN pain #2 tabs 03/31/25 [Rx Confirmed 04/01/25] ibuprofen 800 mg tablet 800 mg PO Q8H PRN pain #20 tabs 03/31/25 [Rx Confirmed 04/01/25] ondansetron 4 mg disintegrating tablet 4 mg PO Q6H PRN nausea and vomiting #7 tabs 03/31/25 [Rx Confirmed 04/01/25] misoprostol 200 mcg tablet (Cytotec) 800 mcg (4 x 200 mcg) PO .ONCE 1 day #4 tabs 04/01/25 [Rx] Intake Visit Data Collection New Patient or Established: Established Patient (seen at [facility] within 3 years) 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 Seen by Clinical Staff ONLY (RN/MA): No Acls Specialist Required: No Do You Feel Safe at Home: Yes Authorities Contacted: N/A PCP or OBGYN visit in last 3 months: Yes Date of Last PCP or OBGYN visit: 03/31/25 Hx Now: No Are you currently on any form of Control: No Pain Present Currently: No Pain Scale Used: Dixon-Quintanilla/Numerical Pain scale:: 0 Smoking Status Smoking Status: Never smoker Immunizations Flu Vaccine in the Last 12 Months: No Flu Vaccine Exclusion Criteria: 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 1. Little interest or pleasure in doing things: not at all 2. Feeling down, depressed, or hopeless: not at all Total score: 0 PHQ-9 3. Trouble falling or staying asleep, or sleeping too much: Not at all 4. Feeling tired or having little energy: Not at all 5. Poor appetite or overeating: Not at all 6. Feeling bad about yourself - or that you are a failure or have let yourself or your family down: Not at all 7. Trouble concentrating on things, such as reading the newspaper or watching television: Not at all 8. Moving or speaking so slowly that other people could have noticed? - Or the opposite - being so fidgety or restless that you have been moving around a lot more than usual: not at all 9. Thoughts that you would be better off or of hurting yourself in some way: Not at all Total score: 0 If you checked off any problems, how difficult have these problems made it for you to do your work, take care of things at home, or get along with other people?: not difficult at all Source: Developed by Drs. Shay Escalante, Lyndsay Light, Jarad Ambrose and colleagues, with an educational fortunato from [email or web address]. Depression screen completed yes Social History Living Situation History Lives With: Family Housing: House Tobacco History Smoking Status: Never smoker Second Hand Smoke Exposure: No Alcohol History Alcohol Intake: Never Domestic Abuse History Do You Feel Safe at Home: Yes History of Present Illness HPI Narrative Polina Dennis presents for follow-up after an emergency department visit yesterday where she was prescribed medication for ongoing bleeding related to a miscarriage. The patient reports that she has not yet taken the prescribed medication because it was sent to [facility] pharmacy in [place] and she was not notified to pick it up. She continues to experience bleeding at this time. The patient was seen in the emergency department yesterday and had medication prescribed, but due to lack of communication from the pharmacy, she has not yet obtained or started the treatment. She has a recent miscarriage and is currently receiving follow-up care. The patient reports lightheadedness and ongoing bleeding. ROS: General: Positive for lightheadedness. Genitourinary: Positive for bleeding. 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 Exam General General Appearance: alert, in no apparent distress and healthy appearing Head Head exam: atraumatic Neck Neck exam: Present normal inspection and trachea midline Chest Chest inspection: Present normal inspection and symmetric chest wall rise External exam: Present normal external exam; Absent tenderness Neuro Neurological exam: Present oriented X3 Psych Psychiatric exam: Present normal affect and normal mood Office Procedures OBC Clinic LOC & Office Proc's Nursing/Assessment Patient Status: Established Patient OB Clinic Nursing Assessment: Medication Reconciliation, Update PMH in EMR and Vital Signs OB Clinic Coordination of Care: Consent,records obtained, informed consent, Education Simp Pt/Fam, Lab and Imaging orders, Results/Orders obtained and Staff clarify orders Special Needs: Heart tones Established Patient Charge Established Patient Point Assignment: 110 Established Patient Point Charge: EP Level 3 (80-115) Assessment & Plan Diagnosis / Problem List (1) Incomplete : Status: Acute Plan Miscarriage with ongoing bleeding: - Patient presents for follow-up after emergency department visit for miscarriage with ongoing bleeding. - Continues to have bleeding, suggesting possible retained products of conception. - Prescribed medication sent to [facility] pharmacy in [place] but not yet picked up. 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 - Take the one-time dose of 800 mg medication to clear any remaining tissues or clots. - Medical management to avoid surgical intervention. - Return for follow-up visit one week after taking the medication for ultrasound and blood test to confirm complete evacuation. - Return to hospital immediately if bleeding becomes very heavy or if experiencing lightheadedness. - Schedule follow-up appointment for miscarriage management after taking medication, any time next week is acceptable.
== END 2025-04-01 11:15 | disposition home or self-care (01) ==
LOC: HODSOBC 10:15
PROVIDERS: Supervising Provider Obstetrics & Gynecology; Visit Provider Obstetrics & Gynecology
DX: O03.4 Incomplete spontaneous abortion without complication (principal)
CPT/HCPCS: 99213; G0463

== ENCOUNTER 2025-04-08 08:19 | Outpatient (AMB) | payer MEDICAID, SELFPAY ==
--- NOTE | 2025-04-08 08:22 | GYNCLNT_ITS ---
Vital Signs 04/08/25 08:29 Height 1.6 m Height Method Stated Weight 69.003 kg Weight Measurement Method Standing Scale BMI 26.9 BP 115/74 Blood Pressure Source Automatic Cuff Blood Pressure Location Left Upper Arm Position Sitting Respiration 18 Pulse 83 Pulse Source Monitor Temp 98.2 F Temp Source Oral Pulse Oximetry (%) 98 Oxygen Delivery Method Room Air Allergies/Home Meds Allergies & Medications Allergies No Known Allergies Allergy (Verified 04/08/25 08:29) Medication Reconciliation vitamins-iron fumarate 66 mg iron-folic acid 1 mg tablet tab PO 03/27/25 [History Confirmed 04/08/25] hydrocodone 5 mg-acetaminophen 325 mg tablet 1 tab PO Q6H PRN pain #2 tabs 03/31/25 [Rx Confirmed 04/08/25] ibuprofen 800 mg tablet 800 mg PO Q8H PRN pain #20 tabs 03/31/25 [Rx Confirmed 04/08/25] ondansetron 4 mg disintegrating tablet 4 mg PO Q6H PRN nausea and vomiting #7 tabs 03/31/25 [Rx Confirmed 04/08/25] levofloxacin 500 mg tablet 500 mg PO Q24H 7 days #7 tabs 04/08/25 [Rx] Intake Visit Data Collection New Patient or Established: Established Patient (seen at [facility] within 3 years) Reason for Visit:: FOLLOW UP MISCARRIAGE Seen by Clinical Staff ONLY (RN/MA): No Obgyn Hospitalist Physician Required: No Do You Feel Safe at Home: Yes Authorities Contacted: N/A PCP or OBGYN visit in last 3 months: Yes Date of Last PCP or OBGYN visit: 04/01/25 Hx Now: No Are you currently on any form of Control: No Pain Present Currently: No Pain Scale Used: Dixon-Quintanilla/Numerical Pain scale:: 0 Smoking Status Smoking Status: Never smoker Immunizations Flu Vaccine in the Last 12 Months: No Flu Vaccine Exclusion Criteria: No Exclusion Criteria 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 1. Little interest or pleasure in doing things: not at all 2. Feeling down, depressed, or hopeless: not at all Total score: 0 PHQ-9 3. Trouble falling or staying asleep, or sleeping too much: Not at all 4. Feeling tired or having little energy: Not at all 5. Poor appetite or overeating: Not at all 6. Feeling bad about yourself - or that you are a failure or have let yourself or your family down: Not at all 7. Trouble concentrating on things, such as reading the newspaper or watching television: Not at all 8. Moving or speaking so slowly that other people could have noticed? - Or the opposite - being so fidgety or restless that you have been moving around a lot more than usual: not at all 9. Thoughts that you would be better off or of hurting yourself in some way: Not at all Total score: 0 If you checked off any problems, how difficult have these problems made it for you to do your work, take care of things at home, or get along with other people?: not difficult at all Source: Developed by Drs. Shay Escalante, Lyndsay Light, Jarad Ambrose and colleagues, with an educational fortunato from [employer]. Depression screen completed yes Social History Living Situation History Lives With: Family Housing: House Tobacco History Smoking Status: Never smoker Second Hand Smoke Exposure: No Alcohol History Alcohol Intake: Never Domestic Abuse History Do You Feel Safe at Home: Yes History of Present Illness HPI Narrative Follow-up after taking medication for management, vaginal itching Patient returns for follow-up after taking prescribed medication for - related treatment. She reports taking the medication as directed and subsequently passed clots and tissues at home. She states that her bleeding is now slowing down, indicating improvement from her previous condition. The patient reports a new concern regarding vaginal itching that has developed recently. She mentions receiving a call from [facility] regarding an infection found during a test examination. Initially, she was asymptomatic when contacted by [facility] and declined treatment at that time, but she is now experiencing vaginal itching. Obstetric History: - Current : Patient appears to be managing a recent loss with medication, with follow-up blood test and ultrasound planned to confirm complete clearance Medications: - Misoprostol 800 mcg for incomplete ?patient took as directed, passed clots/tissue - Antibiotics (including doxycycline)?patient took as prescribed Exam General General Appearance: alert, in no apparent distress and healthy appearing Head Head exam: atraumatic Neck Neck exam: Present normal inspection and trachea midline Chest Chest inspection: Present normal inspection and symmetric chest wall rise External exam: Present normal external exam; Absent tenderness Neuro Neurological exam: Present oriented X3 Psych Psychiatric exam: Present normal affect and normal mood Office Procedures OBC Clinic LOC & Office Proc's Nursing/Assessment Patient Status: Established Patient OB Clinic Nursing Assessment: Medication Reconciliation, Update PMH in EMR and Vital Signs OB Clinic Coordination of Care: Complex Care and Chronic Disease 1-5, Consent,records obtained, informed consent, Education Simp Pt/Fam, Lab and Imaging orders, Results/Orders obtained and Staff clarify orders Established Patient Charge Established Patient Point Assignment: 105 Established Patient Point Charge: EP Level 3 (80-115) Assessment & Plan Diagnosis / Problem List (1) Incomplete : Status: Acute (2) Encounter for supervision of high risk in first trimester, antepartum: Status: Acute Plan loss with medication management Assessment: Patient has undergone medical management for incomplete with misoprostol 800 mcg. She reports passing clots and tissue at home following medication administration, with bleeding now slowing down. Monitoring is needed to confirm complete clearance of tissue. Plan: - Order blood test to assess hormone levels - Order ultrasound to evaluate for retained products of conception - Call patient with results, no office visit required - If retained tissue is identified, will provide further management instructions Vaginal infection with itching Assessment: Patient was contacted by Public Health regarding an infection identified during testing. Initially asymptomatic, but now reports vaginal itching. Antibiotics (including doxycycline) were prescribed and taken as directed. Plan: - Continue prescribed antibiotics for vaginal infection - Patient to receive orders from staff
[2025-04-08 08:29] VITALS: BP 115/74; PULSE 83; RESP 18; TEMP 36.8; O2SAT 98; BMI 26.9
== END 2025-04-08 08:54 | disposition home or self-care (01) ==
LOC: HODSOBC 08:19
PROVIDERS: Supervising Provider Obstetrics & Gynecology; Visit Provider Obstetrics & Gynecology
DX: O03.0 Genital tract and pelvic infection following incomplete spontaneous abortion (principal)
CPT/HCPCS: 99213; G0463

== ENCOUNTER → 2025-04-17 | Outpatient (CLI) | payer MEDICAID, SELFPAY ==
--- NOTE | 2025-04-17 13:26 | XR_ITS ---
Study: Obstetric ultrasound equal to or less than 14 weeks. INDICATION: Follow-up ultrasound of 31 March 2025 raising the question of spontaneous in progress. TECHNIQUE: Grayscale ultrasound with color flow Doppler. 57 images at 1340 hours 17 April 2025. FINDINGS: The study was performed transabdominally. The uterus measures 8.4 x 4.0 x 6.1 cm from the fundus to cervix. There is an endometrial stripe of 1.8 cm containing hyperechoic material. A small amount of free fluid is present in the cul-de-sac. There is no visible intrauterine gestation. The right ovary measures 4.3 x 2.6 x 3.1 cm and contains an anechoic cyst of 2.1 x 1.4 x 2.1 cm which may have represented a corpus luteum. The ovaries perfused. The left ovary measures 2.6 x 2.0 x 1.9 cm and is unremarkable. The ovary is perfused. IMPRESSION: Empty uterus with respect to gestation. Possible minimal endometrial thrombus.
== END | disposition home or self-care (01) ==
PROVIDERS: Referring Provider Obstetrics & Gynecology; Visit Provider Obstetrics & Gynecology
DX: O26.849 Uterine size-date discrepancy, unspecified trimester (principal); O03.4 Incomplete spontaneous abortion without complication
CPT/HCPCS: 76801